=== PATIENT | female | born 1980 | race Caucasian/White ===

== ENCOUNTER → 2022-07-09 | Outpatient (CLI) | payer BC ==
[2022-07-09 08:12] LABS: Basophils # (auto) 0.1 10 ^3/uL (0-0.2); Basophils % (auto) 0.7 % (0.0-2.0); Eosinophils # (auto) 0.1 10 ^3/uL (0-0.8); Eosinophils % (auto) 0.9 % (0.0-7.0); Hematocrit 41.8 % (36.0-46.0); Hemoglobin 14.1 g/dL (12.2-16.2); Lymphocytes # (auto) 2.3 10 ^3/uL (0.4-5.4); Lymphocytes % (auto) 26.6 % (10.0-50.0); Mean Corpuscular Hemoglobin 28.9 pg (28.0-32.0); Mean Corpuscular Hgb Conc. 33.8 g/dL (32.0-36.0); Mean Corpuscular Volume 85.4 fL (80.0-100.0); Monocytes # (auto) 0.6 10 ^3/uL (0-1.3); Monocytes % (auto) 6.8 % (0.0-12.0); Neutrophils # (auto) 5.5 10 ^3/uL (1.6-8.6); Red Cell Distribution Width 13.9 % (11.8-14.3); White Blood Cell 8.5 10^3/uL (4.4-10.8)
[2022-07-09 08:29] LABS: Partial Thromboplastin Time 30.5 sec (24.6-33.4)
[2022-07-09 08:34] LABS: Albumin 4.1 g/dL (3.4-5.0); Calcium 9.1 mg/dL (8.5-10.1); Potassium 3.8 mmol/L (3.5-5.1)
[2022-07-09 08:38] LABS: BUN/Creatinine Ratio 11.5; Bilirubin, Total 0.7 mg/dL (0.2-1.0); Total Protein 8.1 g/dL (6.4-8.2)
== END | disposition home or self-care (01) ==
LOC: LAB 07:56
PROVIDERS: ATTEND Family Medicine
DX: Z01.818 Encounter for other preprocedural examination (principal)
CPT/HCPCS: 36415; 80053; 85025; 85610; 85730

== ENCOUNTER 2023-10-01 17:34 | Emergency (ER) | payer BC ==
[~2023-10-01] VITALS: Ht 157.5 cm; Wt 83.5 kg
[2023-10-01 21:10] VITALS: TEMP 98.9; O2SAT 99
[2023-10-01 21:44] VITALS: BP 124/82; PULSE 89; RESP 20
[2023-10-01] MEDS: MORPHINE SULFATE INJ 2 MG/ml SYRG IM ONE (21:44)
[2023-10-01] MEDS: ONDANSETRON ODT 4 MG TAB PO ONE (21:44)
== END 2023-10-01 21:55 | disposition home or self-care (01) ==
LOC: ER 17:34 → EEVIPCON 17:34 → ER 21:55
DX: S16.1XXA Strain of muscle, fascia and tendon at neck level, initial encounter (principal); Z90.710 Acquired absence of both cervix and uterus; Z98.890 Other specified postprocedural states; Z88.8 Allergy status to other drugs, medicaments and biological substances; X58.XXXA Exposure to other specified factors, initial encounter; Y93.89 Activity, other specified; Y92.89 Other specified places as the place of occurrence of the external cause; Y99.8 Other external cause status
CPT/HCPCS: 70450; 72125; 96372; 99285; J2270; Q0162

== ENCOUNTER → 2024-02-03 | Outpatient (CLI) | payer BC ==
[2024-02-03 07:23] LABS: Basophils # (auto) 0 10 ^3/uL (0-0.2); Basophils % (auto) 0.6 % (0.0-2.0); Eosinophils # (auto) 0.3 10 ^3/uL (0-0.8); Eosinophils % (auto) 3.1 % (0.0-7.0); Hematocrit 41.3 % (36.0-46.0); Hemoglobin 13.8 g/dL (12.2-16.2); Lymphocytes # (auto) 3.3 10 ^3/uL (0.4-5.4); Mean Corpuscular Hemoglobin 28.2 pg (28.0-32.0); Mean Corpuscular Hgb Conc. 33.5 g/dL (32.0-36.0); Mean Corpuscular Volume 83.9 fL (80.0-100.0); Monocytes # (auto) 0.8 10 ^3/uL (0-1.3); Monocytes % (auto) 9.2 % (0.0-12.0); Neutrophils # (auto) 4.2 10 ^3/uL (1.6-8.6); Neutrophils % (auto) 49.1 % (37.0-80.0); Platelet Count (auto) 348 10^3/uL (140-450); Red Blood Cells 4.92 10^6/uL (4.0-5.20); Red Cell Distribution Width 14.2 % (11.8-14.3); White Blood Cell 8.6 10^3/uL (4.4-10.8)
[2024-02-03 08:09] LABS: Alanine Aminotransferase 20 U/L (7-40); Albumin 4.3 g/dL (3.2-4.8); Alkaline Phosphatase 71 U/L (46-116); Anion Gap 3 (5-15); Aspartate Aminotransferase 15 U/L (13-40); BUN/Creatinine Ratio 10.1 (10.0-20.0); Blood Urea Nitrogen 8 mg/dL (9-23); Calcium 9.9 mg/dL (8.7-10.4); Carbon Dioxide 31 mmol/L (20-30); Chloride 105 mmol/L (98-107); Cholesterol 209 mg/dL (< 200); Glucose 90 mg/dL (74-106); LDL Cholesterol 133 mg/dL (< 100); Magnesium 1.9 mg/dL (1.6-2.6); Potassium 3.4 mmol/L (3.5-5.1); Sodium 139 mmol/L (136-145); Triglycerides 202 mg/dL (< 150)
[2024-02-03 08:10] LABS: Bilirubin, Total 0.3 mg/dL (0.2-1.0); HDL Cholesterol 48 mg/dL (40-59); Total Protein 7.4 g/dL (5.7-8.2)
[2024-02-03 09:30] LABS: Uric Acid 5.2 mg/dL (3.1-7.8)
[2024-02-03 10:40] LABS: Free T4 (Free Thyroxine) 1.14 ng/dL (0.89-1.76)
[2024-02-03 10:42] LABS: Folate (Folic Acid) 15.29 ng/mL (>5.38)
[2024-02-04 12:06] LABS: Chlamydia Trachomatis, NAA Negative (Negative); Neisseria gonorrhoeae, NAA Negative (Negative)
== END | disposition home or self-care (01) ==
LOC: LAB 06:51
PROVIDERS: ATTEND Family Medicine
DX: M51.36 Other intervertebral disc degeneration, lumbar region (principal); R00.0 Tachycardia, unspecified; E89.40 Asymptomatic postprocedural ovarian failure; M79.7 Fibromyalgia; E78.5 Hyperlipidemia, unspecified
CPT/HCPCS: 36415; 80053; 80061; 82306; 82607; 82746; 83036; 83735; 84439; 84443; 84550; 85025

== ENCOUNTER 2024-06-14 20:05 | Emergency (ER) | payer BC ==
[~2024-06-14] VITALS: Ht 157.5 cm; Wt 83.4 kg
[2024-06-14 21:51] LABS: COVID19 ANTIGEN SOFIA FIA NEGATIVE (NEGATIVE); Rapid Influenza A Negative (Negative); Rapid Influenza B Negative (Negative)
[2024-06-14] MEDS ORDERED: ZOFR4T PO (22:05)
[2024-06-14] MEDS ORDERED: PROM1SOL4 PO (22:05)
--- NOTE | 2024-06-14 22:06 | ED.PDOC ---
History of Present Illness HPI Comments 43-year-old female complaining of headaches body aches nausea and vomiting. States she was history of fibromyalgia. Has not been able take her medications yesterday today due to the nausea. Says she thinks she may have viral infection has it has been going around her house. Nothing makes it better, nothing makes it worse. Has been having nonproductive cough. Chief Complaint: Flu like Time Seen by MD: 20:42 Primary Care Provider: JERRY Jones Notes: Nurses Notes Allergies: Coded Allergies: Baclofen (Verified Allergy, Unknown, 10/01/23) Cefixime (Verified Allergy, Unknown, 10/01/23) Ciprofloxacin (Verified Allergy, Unknown, 10/01/23) Sodium Benzoate (Verified Allergy, Unknown, 10/01/23) Sulfa Antibiotics (Verified Allergy, Unknown, 10/01/23) Sulfamethoxazole w/Trimethoprim (Verified Allergy, Unknown, 10/01/23) Uncoded Allergies: ADHESIVE TAPE (Allergy, Unknown, 10/01/23) Information Source: Patient Mode of Arrival: Ambulatory Past Medical History PAST MEDICAL HISTORY: Denies Surgical History: Hysterectomy [employer] LO[employer] SPECIALIST History: No Pertinent [employer] LOAN SPECIALIST History Family History Family History: Unknown Social History Lives In: Home Constitutional: reports: fever, malaise; denies: chills, diaphoresis, fatigue, sweats, weakness, others EENTM: denies: blurred vision, double vision, ear bleeding, ear discharge, ear drainage, ear pain, ear ringing, eye pain, eye redness, hearing loss, mouth pain, mouth swelling, nasal discharge, nose bleeding, nose congestion, nose pain, photophobia, tearing, throat pain, throat swelling, voice changes, others Respiratory: reports: cough; denies: hemoptysis, orthopnea, SOB at rest, shortness of breath, SOB with excertion, stridor, wheezing, others Cardiovascular: denies: chest pain, dizzy spells, diaphoresis, Dyspnea on exertion, edema, irregular heart beat, left arm pain, lightheadedness, palpitations, PND, syncope, others Gastrointestinal: reports: nausea, vomiting; denies: abdomen distended, abdominal pain, blood streaked bowels, constipated, diarrhea, dysphagia, difficulty swallowing, hematemesis, melena, poor appetite, poor fluid intake, rectal bleeding, rectal pain, others Genitourinary: denies: abnormal vagina bleeding, burning, dyspareunia, dysuria, flank pain, frequency, hematuria, incontinence, pain, , vagina discharge, urgency, others Neurological: reports: headache; denies: dizziness, fainting, left sided numbness, left sided weakness, numbness, paresthesia, pre-existing deficit, right sided numbness, right sided weakness, seizure, speech problems, tingling, tremors, weakness, others Musculoskeletal: denies: back pain, gout, joint pain, joint swelling, muscle pain, muscle stiffness, neck pain, others Integumetry: denies: bruises, change in color, change in hair/nails, dryness, laceration, lesions, lumps, rash, wounds, others Physical Exam General Appearance: No Apparent Distress, Normal HEENT: Normal ENT Inspection, Pharynx Normal, TMs Normal Neck: Full Range of Motion, Non-Tender, Normal, Normal Inspection Respiratory: Chest Non-Tender, Lungs Clear, No Accessory Muscle Use, No Respiratory Distress, Normal Breath Sounds Cardiovascular: No Edema, No JVD, No Murmur, No Gallop, Normal Peripheral Pulses, Regular Rate/Rhythm Breast Exam: Deferred Gastrointestinal: No Organomegaly, Non Tender, No Pulsatile Mass, Normal Bowel Sounds, Soft Genitalia: Deferred Pelvic: Deferred Rectal: Deferred Extremities: No calf tenderness, Normal capillary refill, Normal inspection, Normal range of motion, Non-tender, No pedal edema Musculoskeletal : Apperance: Normal Neurologic: Alert, supervisor inspection room II-XII nml as Tested, No Motor Deficits, Normal Affect, Normal Mood, No Sensory Deficits Cerebellar Function: Normal Reflexes: Normal Skin: Dry, Normal Color, Warm Lymphatic: No Adenopathy Was a procedure done? Was a procedure done?: No Differential Dx Considerations may include: URI, influenza, COVID, strep throat, pharyngitis, pneumonia X-Ray, Labs, Meds, VS Vital Signs Date Time Temp Pulse Resp B/P (MAP) Pulse Ox O2 Delivery O2 Flow Rate FiO2 06/14/24 21:31 97.9 105 18 137/95 (109) 95 Lab Test 06/14/24 20:51 Range/Units Influenza Type A Antigen Negative Negative Influenza Type B Antigen Negative Negative SARS-CoV-2 Antigen (Rapid) Negative NEGATIVE X-Ray, Labs, Meds, VS Comment Imaging: X-rays and CT scans were reviewed and interpreted by this provider, imaging shows no fractures and no pathological disease. Pending radiology review. Laboratory: Labs reviewed and interpreted by this provider. No significant abnormalities noted. Patient has prior medical visits reviewed. Med reconciliation performed Vital signs reviewed Time of 1ST Reevaluation: 22:05 Reevaluation 1ST: Improved Patient Education/Counseling: Diagnosis, Treatment, Need For Follow Up (Follow up with the PCP in the next 2-4 days. Return to the emergency department if symptoms have not improved in 24 hours.) Family Education/Counseling: Diagnosis Departure 1 Departure Time of Disposition: 22:02 Impression: Primary Impression: Fibromyalgia muscle pain Additional Impression: Viral illness Disposition: HOME / SELF CARE / HOMELESS Condition: Fair Additional Instructions: He had been diagnosed with upper respiratory infection. The viral infection in his most likely causing a flare in her fibromyalgia He will be sent home with cough medication and nausea medication. This will hopefully allow her to take her pain medications for her fibromyalgia Follow up in the emergency department the next 24-48 hours if symptoms get any worse. e-Prescriptions Promethazine-Dm (Promethazine Dm 6.25-15 mg/5Ml) 1 Nelda Nelda 5 ML PO TID PRN, #240 ML Prov: DONN SWIFT 06/14/24 Ondansetron Odt 4MG Tab (ZOFRAN PO) 4 Mg Tb 4 MG PO TID PRN, #15 TAB ODT TAB-DISSOLVE IN MOUTH, THEN SWALLOW Prov: DONN SWIFT 06/14/24 Discharged With: Self Critical Care Note Critical Care Time?: No Stability Stability form required: No Heart Score Heart Score: Heart Score Response (Comments) Value History N/A 0 EKG N/A 0 Age N/A 0 Risk Factors N/A 0 Troponin N/A 0 Total 0 DONN SWIFT Jun 14, 2024 22:06
[2024-06-14] MEDS: ONDANSETRON ODT 4 MG TAB PO ONE (23:54)
[2024-06-14] MEDS: MORPHINE SULFATE 4 MG/ML SYR/VIAL IM ONE (23:55)
[2024-06-14 23:59] VITALS: TEMP 97.9; O2SAT 97
[2024-06-15 00:27] VITALS: BP 129/90; PULSE 100; RESP 16
== END 2024-06-15 00:37 | disposition home or self-care (01) ==
LOC: ER 20:05
DX: M79.7 Fibromyalgia (principal); B34.9 Viral infection, unspecified; Z88.6 Allergy status to analgesic agent; Z88.8 Allergy status to other drugs, medicaments and biological substances; Z88.2 Allergy status to sulfonamides; Z90.710 Acquired absence of both cervix and uterus; Z20.822 Contact with and (suspected) exposure to COVID-19
CPT/HCPCS: 36415; 87426; 87804; 96372; 99283; J2270; Q0162